=== PATIENT | female | born 1985 | race American Indian/Alaskan Native ===

== ENCOUNTER → 2018-02-07 | Outpatient (CLI) | payer MEDICAID | LOC: SLR 11:00 | PROVIDERS: ATTEND Otolaryngology | DX: G47.30 Sleep apnea, unspecified (principal) | CPT/HCPCS: G0399 ==

== ENCOUNTER 2018-03-29 11:00 | Outpatient (CLI) | payer MEDICAID | END 2018-03-29 11:01 | disposition home or self-care (01) | LOC: SLR 11:00 | PROVIDERS: ATTEND Otolaryngology | DX: G47.33 Obstructive sleep apnea (adult) (pediatric) (principal) | CPT/HCPCS: 95811 ==

== ENCOUNTER 2018-04-03 05:56 | Day surgery (SDC) | payer MEDICAID ==
[2018-04-03] MEDS ORDERED: DIPRIVAN 10 MG/ML IV ONE (11:18)
[2018-04-03] MEDS ORDERED: KETALAR ONE (11:19)
--- NOTE | 2018-04-03 11:31 | Operative Report ---
Operative Report Operative Report: OPERATIVE REPORT - EGD DATE 04/03/18 SURGERY: Upper endoscopy. SURGEON: Dr. Kowalski SUPERVISOR [employer]: Marisel Vasquez DO. PRE OP DX: Morbid Obesity, dyspepsia POST OP DX: small hiatal hernia TYPE OF ANESTHESIA: MAC. ESTIMATED BLOOD LOSS: None. COMPLICATIONS: None. SPECIMENS REMOVED: None. FINDINGS: 1. Small hiatal hernia. 2. Otherwise, normal esophagus, stomach and first portion of duodenum. INDICATIONS:INDICATION FOR PROCEDURE: Patient is a 33-year-old female with a long history of morbid obesity. She is planned to have a weight loss procedure and is here for preoperative planning EGD. PROCEDURE DETAILS: After consent was reviewed, patient was taken back to the operating room where patient was placed in the left lateral decubitus position and a bite block was placed in the mouth. After a time-out was called, MAC anesthesia was initiated. I then passed the endoscope into her oropharynx, into her esophagus, visualized the entire esophagus, which was all within normal limits. I then visualized the stomach and the first portion of the duodenum and there were no abnormalities I could clearly visualize. I then retroflexed the scope in the stomach and visualized the hiatus and I could see a small hiatal hernia. I then desufflated the stomach and removed the endoscope. Patient tolerated procedure well and was transferred to recovery room in good and stable condition.
--- NOTE | 2018-04-03 11:33 | Discharge Summary ---
Providers - Providers Attending physician: YONY LEWIS Primary care physician: CITLALLI GRIFFIN MD Hospitalization Hospital course: 33 y.o. F with hx of morbid obesity s/p EGD. Small hiatal hernia found. Pt discharged the same day. Disposition: DC-01 TO HOME OR SELFCARE Core Measure Documentation - Palliative Care Palliative Care/ Comfort Measures: Not Applicable - Core Measures Any of the following diagnoses?: none Exam - Physical Exam Narrative exam: no change from prior Plan Additional Instructions: follow up for planned surgery Follow up with: CITLALLI GRIFFIN MD [Primary Care Provider] - 7 Days
--- NOTE | 2018-04-03 11:40 | Anesthesia Consultation ---
Anesthesia Consult and Med Hx Date of service: 04/03/18 - Airway Anesthetic Teeth Evaluation: Good ROM Head & Neck: Adequate Mental/Hyoid Distance: Adequate Mallampati Class: Class III Intubation Access Assessment: Possibly Difficult - Pulmonary Exam CTA: Yes - Cardiac Exam Cardiac Exam: RRR - Pre-Operative Health Status ASA Pre-Surgery Classification: ASA3 Proposed Anesthetic Plan: MAC - Pulmonary Hx Sleep Apnea: Yes - Gastrointestinal Hx Gastroesophageal Reflux Disease: Yes - Other Systems Hx Obesity: Yes
--- NOTE | 2018-04-03 11:41 | Anesthesia Day of Surgery ---
Anesthesia Day of Surgery - Day of Surgery Patient Examined: Yes Patient H&P Reviewed: Yes Patient is NPO: Yes
[2018-04-03 12:15] VITALS: BP 113/71
--- NOTE | 2018-04-03 14:37 | Post Anesthesia Evaluation ---
- Post Anesthesia Evaluation Patient Participated: Yes Airway Patent: Yes Stable Respiratory Function: Yes Nausea/Vomiting: No Temp > 96.8F: Yes Pain Manageable: Yes Adequeate Hydration: Yes Anesthesia Complications: No
[2018-04-03] MEDS ORDERED: HURRICAINE ONE 20% TOPICAL SPRAY MM ×2 (17:16→17:19)
[2018-04-03] MEDS ORDERED: HURRICAINE ONE 20% TOPICAL SPRAY MM NR (18:00)
[2018-04-03] MEDS ORDERED: NACL 0.9% 1000 ML 1,000 ML IV SCH (19:00)
== END 2018-04-03 05:57 | disposition home or self-care (01) ==
LOC: GIO 05:56
PROVIDERS: ATTEND Specialist
DX: K44.9 Diaphragmatic hernia without obstruction or gangrene (principal); K21.9 Gastro-esophageal reflux disease without esophagitis; E66.01 Morbid (severe) obesity due to excess calories; G47.33 Obstructive sleep apnea (adult) (pediatric); G47.00 Insomnia, unspecified; Z68.43 Body mass index [BMI] 50.0-59.9, adult; Z88.8 Allergy status to other drugs, medicaments and biological substances; Z99.89 Dependence on other enabling machines and devices
CPT/HCPCS: 43235; 81025; J2704

== ENCOUNTER 2018-04-09 08:00 | Inpatient (IN) | payer MEDICAID ==
[2018-04-09] MEDS ORDERED: APRESOLINE IV PRN (10:34)
[2018-04-09] MEDS ORDERED: ZOFRAN IV PRN (10:34)
[2018-04-09] MEDS ORDERED: TRANSDERM-SCOP TD SCH (11:00)
[2018-04-10] MEDS ORDERED: DIPRIVAN 10 MG/ML IV ONE (07:14)
[2018-04-10] MEDS ORDERED: XYLOCAINE MPF 2% ONE (07:15)
[2018-04-10] MEDS ORDERED: ZEMURON IV ONE ×2 (07:15→10:28)
[2018-04-10] MEDS ORDERED: DILAUDID ONE (07:15)
[2018-04-10] MEDS: LACTATED RINGERS 1,000 ML IV SCH ×2 (07:24→21:26)
[2018-04-10 07:38] LABS: Bilirubin,Urine NEG (Negative); Blood,Urine NEG (Negative); Color,Urine Yellow (Yellow); Mucus,Urine FEW /HPF; Protein,Urine <15 mg/dL mg/dL (Negative); Urobilinogen,Urine < 2.0 mg/dL (<2.0)
[2018-04-10] MEDS ORDERED: FLAGYL 500 MG/100 ML 500 MG/100 ML BAG IV ONE (07:43)
[2018-04-10] MEDS ORDERED: XYLOCAINE 1% 20 mL INFILTRATI ONE (07:48)
[2018-04-10] MEDS ORDERED: NACL 0.9% IR ONE ×2 (07:48)
[2018-04-10] MEDS ORDERED: MARCAINE 0.5% INFILTRATI ONE (07:48)
[2018-04-10] MEDS ORDERED: FLAGYL 500 MG/100 ML 500 MG/100 ML BAG IV NR (08:00)
[2018-04-10] MEDS ORDERED: LOVENOX SUB-Q NR (08:00)
[2018-04-10] MEDS ORDERED: ANCEF/STERILE WATER 2 GM/20 ML 2 GM/20 ML SYRINGE IV NR (08:00)
[2018-04-10] MEDS ORDERED: MARCAINE 0.5% 30 ML INFILTRATI ONE (08:16)
[2018-04-10] MEDS ORDERED: XYLOCAINE 1% 20 mL ONE (08:17)
--- NOTE | 2018-04-10 08:40 | Anesthesia Consultation ---
Anesthesia Consult and Med Hx Date of service: 04/10/18 - Airway Anesthetic Teeth Evaluation: Good ROM Head & Neck: Adequate Mental/Hyoid Distance: Adequate Mallampati Class: Class I Intubation Access Assessment: Probably Good - Pulmonary Exam CTA: Yes - Cardiac Exam Cardiac Exam: RRR - Pre-Operative Health Status ASA Pre-Surgery Classification: ASA3 Proposed Anesthetic Plan: General - Pulmonary Hx Smoking: Yes (SINCE AGE 16, QUIT JANUARY 2018) Hx Sleep Apnea: Yes - Cardiovascular System Hx Hypertension: No Hx Coronary Artery Disease: No - Central Nervous System Hx Seizures: No Hx Back Pain: No Hx Psychiatric Problems: No - Gastrointestinal Hx Gastroesophageal Reflux Disease: Yes - Endocrine Hx Renal Disease: No Hx Non-Insulin Dependent Diabetes: No - Other Systems Hx Alcohol Use: No Hx Substance Use: No Hx Cancer: No Hx Obesity: Yes
--- NOTE | 2018-04-10 08:40 | Anesthesia Day of Surgery ---
Anesthesia Day of Surgery - Day of Surgery Patient Examined: Yes Patient H&P Reviewed: Yes Patient is NPO: Yes
[2018-04-10] MEDS ORDERED: SUBLIMAZE ONE (08:45)
[2018-04-10] MEDS ORDERED: ZOFRAN ONE (11:02)
[2018-04-10] MEDS ORDERED: NEOSTIGMINE ONE (11:03)
[2018-04-10] MEDS ORDERED: ROBINUL ONE (11:03)
[2018-04-10] MEDS ORDERED: TORADOL ONE (11:30)
[2018-04-10] MEDS: DILAUDID IV PRN ×3 (11:52→16:42)
[2018-04-10] MEDS: MYLICON PO PRN ×2 (12:20→21:20)
--- NOTE | 2018-04-10 12:20 | Operative Report ---
Operative Report Operative Report: DATE OF PROCEDURE: SURGEON: Dr. Kowalski STONE DECORATOR: Alva Vasquez DO, Dr. Eubanks PREOPERATIVE DIAGNOSIS: Morbid obesity. POSTOPERATIVE DIAGNOSES: Morbid obesity PROCEDURES PERFORMED: 1. Laparoscopic gastric bypass. 2. Repair of hiatal hernia 3 EGD. ANESTHESIA: General endotracheal tube intubation. SPECIMENS: None. ESTIMATED BLOOD LOSS: Less than 10 mL. FINDINGS: Hiatal hernia COMPLICATIONS: None. INDICATION: Ms. Harrington is a 33 y.o. F with hx of morbid obesity. She has tried many methods to loose weight. She signed informed consent and expressed understanding of risks and benefits for a laparoscopic gastric bypass. DESCRIPTION OF PROCEDURE: Patient was brought to the OR suite, laid in supine position. Bilateral lower extremity SCDs were placed. General anesthesia was induced via successful endotracheal tube intubation. Patient's abdomen was prepped and draped in sterile fashion. Veress needle was inserted with ease into the left upper quadrant. Insufflation to 12-15 was completed. An incision was made a the umbilicus. Next using Optiview technique, quadrant a 12-mm trocar was placed into the abdominal cavity under direct vision with a 10-0 scope. There was noted to be no gross injury to any intraabdominal structures. The veress needle was removed. 5 working trocars were placed under direct visualization, 10 mm in the right mid abdomen mid clavicular line and three 5-mm trocars in the right upper quadrant, epigastric, left upper quadrant and left mid abdomen. At this time, the ligament of Treitz identified and followed down approximately 30 cm and the jejunum was transected. The distal segment of jejunum was then traced for approximately 100 cm and a stable [id number] jejunojejunostomy was performed. Minimal bleeding with controlled with 2 10mm clips on the mesentary/small bowel border. The common enterotomy was closed with 1 firing of the endoscopic stapler. The mesenteric defect was closed with running Surgidac suture. This anastomosis was found to be patent without kink, obstruction or bleeding. At this time, the patient was placed in steep reverse Trendelenburg position. A liver retractor was placed through the epigastric port to elevate the left lateral lobe of the liver. The right and left crura were skeletonized accentuating a small hiatal hernia. An anterior cruraplasty was performed with a figure-of-8 stitch using surgidac suture to reapproximate the crura. Next a small gastric pouch was formed useing blunt dissection and a blue staple load x 3 The Rosalia limb was then brought in an antegastric antecolic fashion and secured with 2 stay sutures to the gastric pouch. After this, the enterotomies were made with the hook cautery, and a yfid-iy-wcon stapled gastrojejunostomy was performed with a mechanical stapler. After this, a 2-layer running closure using V lock suture were done, the first being mucosal approximation prior to completion of the first layer. A small gastric vein was ligated to control bleeding at the site of the anastomosis. Next an EGD scope beyond the anastomosis to act as a stent. The first layer was completed, the second was then performed. After this, the EGD was retracted slightly. A bowel clamp was placed in a proximal Rosalia limb. The anastomosis was submerged under saline. Via intraluminal EGD insufflation, there was noted be no bubbles in the saline indicating an airtight anastomosis. There was noted to be no obstruction or bleeding intraluminally in the pouch or the anastomosis. At this time, the scope was removed. The saline was aspirated. The 15mm trocar was removed from the umbilius. The defect was closed using a suture passer with 1-pds in a figure of 8 pattern. Next the remaining trocars were removed under direct visualization and the abdomen was then desufflated. The skin incisions were closed with 4-0 Monocryl followed by sterstrips, gauze and tegaderms. Patient was awoken and taken to recovery in stable condition. All counts were correct. Local anesthesia was used at each port site prior to insertion. he GE juction was below the level of the diaphragm. A dissection afterward 1- 2cm of esophagus was intrabadominal without tension. An anterior cruraplasty was perfromed with a figure-of-8 stitch using Endostich x 2 with 0 ethibond suture to reapproximate the crura. An additional single suture was place in a similar fashion.
[2018-04-10] MEDS: REGLAN IV PRN (12:31)
[2018-04-10] MEDS: NORCO PO PRN ×2 (12:35→18:13)
[2018-04-10] MEDS: MORPHINE IV PRN ×2 (12:40→21:21)
[2018-04-10 12:49] LABS: Basophils % (Auto) 0.1 % (0.0-1.8); Eosinophils % (Auto) 0.1 % (0.0-4.3); Hematocrit 36.6 % (30.3-42.9); Hemoglobin 11.8 gm/dl (10.1-14.3); Lymphocytes % (Auto) 14.6 % (13.4-35.0); Mean Corpuscular HGB Conc 32 % (30-34); Mean Corpuscular Hemoglobin 25 pg (28-32); Mean Corpuscular Volume 79 fl (79-97); Monocytes # (Auto) 0.6 K/mm3 (0.0-0.8); Monocytes % (Auto) 4.2 % (0.0-7.3); Platelet Count 255 K/mm3 (140-440); Red Blood Count 4.66 M/mm3 (3.65-5.03); Red Cell Distribution Width 17.4 % (13.2-15.2)
[2018-04-10 13:14] LABS: Alanine Aminotransferase 63 units/L (7-56); Albumin 3.5 g/dL (3.9-5); BUN/Creatinine Ratio 14; Blood Urea Nitrogen 11 mg/dL (7-17); Calcium 8.4 mg/dL (8.4-10.2); Hemolysis Index 0
[2018-04-11] MEDS: MORPHINE IV PRN ×2 (00:57→06:23)
[2018-04-11] MEDS: REGLAN IV PRN (00:58)
[2018-04-11] MEDS: LACTATED RINGERS 1,000 ML IV SCH ×2 (05:06→13:07)
[2018-04-11 06:02] LABS: Basophils % (Auto) 0.1 % (0.0-1.8); Eosinophils % (Auto) 0.1 % (0.0-4.3); Hematocrit 36.9 % (30.3-42.9); Hemoglobin 12.3 gm/dl (10.1-14.3); Lymphocytes % (Auto) 19.8 % (13.4-35.0); Mean Corpuscular HGB Conc 33 % (30-34); Mean Corpuscular Hemoglobin 26 pg (28-32); Mean Corpuscular Volume 78 fl (79-97); Monocytes # (Auto) 0.6 K/mm3 (0.0-0.8); Platelet Count 219 K/mm3 (140-440); Red Blood Count 4.73 M/mm3 (3.65-5.03); Red Cell Distribution Width 17.4 % (13.2-15.2)
[2018-04-11 06:13] LABS: BUN/Creatinine Ratio 7; Blood Urea Nitrogen 5 mg/dL (7-17); Calcium 8.6 mg/dL (8.4-10.2); Hemolysis Index 0
[2018-04-11] MEDS ORDERED: LOVENOX SUB-Q SCH (10:00)
[2018-04-11] MEDS: DILAUDID IV PRN (10:39)
--- NOTE | 2018-04-11 15:46 | Discharge Summary ---
Providers - Providers Date of Admission: 04/10/18 06:06 Date of discharge: 04/11/18 Attending physician: YONY LEWIS Primary care physician: CITLALLI GRIFFIN MD Hospitalization Condition: Good Procedures: Lap Gastric Bypass Disposition: DC-01 TO HOME OR SELFCARE Core Measure Documentation - Palliative Care Palliative Care/ Comfort Measures: Not Applicable - Core Measures Any of the following diagnoses?: none Exam - Constitutional Vitals: Temp Pulse Resp BP Pulse Ox 97.8 F 73 18 125/70 97 04/11/18 12:07 04/11/18 12:07 04/11/18 12:07 04/11/18 12:07 04/11/18 12:07 General appearance: Present: no acute distress, well-nourished - EENT Eyes: Present: PERRL, EOM intact ENT: hearing intact, clear oral mucosa, dentition normal - Neck Neck: Present: supple, normal ROM - Respiratory Respiratory effort: normal Respiratory: bilateral: CTA - Cardiovascular Rhythm: regular - Extremities Extremities: no ischemia, pulses intact, pulses symmetrical, normal temperature , normal color, Full ROM Peripheral Pulses: within normal limits - Abdominal General gastrointestinal: Present: soft, non-tender Female genitourinary: Present: normal - Rectal Rectal Exam: deferred - Integumentary Integumentary: Present: clear, warm, dry - Musculoskeletal Musculoskeletal: strength equal bilaterally - Psychiatric Psychiatric: appropriate mood/affect Plan Activity: no restrictions Weight Bearing Status: Full Weight Bearing Diet: other (bariatric) Wound: keep clean and dry Follow up with: CITLALLI GRIFFIN MD [Primary Care Provider] - 7 Days YONY LEWIS MD [Staff Physician] - 7 Days
[2018-04-11] MEDS: NORCO PO PRN (16:49)
[2018-04-11 17:26] VITALS: BP 128/74
== END 2018-04-11 17:59 | disposition home or self-care (01) | DRG 327 ==
LOC: 3A 04-10 06:06 → 3B-SURG 04-10 13:56
PROVIDERS: ADMIT Specialist; ATTEND Specialist
PROC: 0D164ZA Bypass Stomach to Jejunum, Percutaneous Endoscopic Approach (ICD-10-PCS; principal; 2018-04-10)
PROC: 0BQT4ZZ Repair Diaphragm, Percutaneous Endoscopic Approach (ICD-10-PCS; 2018-04-10)
PROC: 0DJ08ZZ Inspection of Upper Intestinal Tract, Via Natural or Artificial Opening Endoscopic (ICD-10-PCS; 2018-04-10)
DX: K44.9 Diaphragmatic hernia without obstruction or gangrene (principal); Z68.43 Body mass index [BMI] 50.0-59.9, adult; E66.01 Morbid (severe) obesity due to excess calories; K21.9 Gastro-esophageal reflux disease without esophagitis; G47.30 Sleep apnea, unspecified; Z71.3 Dietary counseling and surveillance; Z87.891 Personal history of nicotine dependence
CPT/HCPCS: 36415; 80048; 80053; 81001; 81025; 82962; 85025; A4217; C9250; J0690; J1170; J1650; J1885; J2270; J2405; J2704; J2710; J2765; J3010; J7120